=== PATIENT | male | born 2000 | race Caucasian/White ===

== ENCOUNTER 2019-10-20 20:44 | Emergency (ER) | payer OTHER ==
[~2019-10-20] VITALS: Ht 172.7 cm; Wt 56.7 kg
--- NOTE | 2019-10-20 21:18 | NUR ---
PT BIBSELF STATING "I'M SCARED I HAVE JACK VIRUS" PT ASYMPTOMATIC. MEDICAL SCREENING EXAM BY DR. RUELAS AND MEDICALLY CLEARED FOR DISCHARGE. UPON DISCHARGE, WAS INFORMED PT NEEDS MEDICAL CLEARANCE. PT NOW C/O SI WITH PLAN TO RUN INTO TRAFFIC. PT AAOX4. RESPIRATIONS EVEN AND UNLABORED. SKIN INTACT. VITAL SIGNS STABLE. AMBULATORY WITH STEADY GAIT. PT PLACED IN GOWN, BELONGINGS COLLECTED AND PLACED IN PT LOCKER. SITTER AT BEDSIDE
--- NOTE | 2019-10-20 21:20 | NUR ---
URINE SPECIMEN COLLECTED AND SENT TO LAB.
--- NOTE | 2019-10-20 21:30 | NUR ---
SECURITY AT BEDSIDE FOR WANDING
[2019-10-20 21:35] LABS: BASOPHILS # (AUTO) 0.1 /CMM (0.0-0.2); BASOPHILS % (AUTO) 1.1 % (0.0-2.0); EOSINOPHILS % (AUTO) 1.1 % (0.0-6.0); HEMATOCRIT 45 % (39-51); HEMOGLOBIN 15.1 g/dL (13.5-17.5); LYMPHOCYTES % (AUTO) 21.9 % (20.0-44.0); MEAN CORPUSCULAR HGB CONC 33 g/dl (31.0-36.0); MEAN CORPUSCULAR VOLUME 93 fL (80-96); MONOCYTES # (AUTO) 0.8 /CMM (0.1-1.30); MONOCYTES % (AUTO) 9.2 % (2.0-12.0); NEUTROPHILS % (AUTO) 66.7 % (43.0-81.0); PLATELET COUNT (AUTO) 266 /CMM (150-450); RED BLOOD CELL COUNT(AUTO) 4.87 MIL/uL (4.5-6.0)
[2019-10-20 21:51] LABS: APPEARANCE,URINE Clear (CLEAR); BILIRUBIN,URINE Negative (NEGATIVE); BLOOD, URINE Negative Ery/uL (NEGATIVE); COLOR,URINE Yellow (YELLOW); KETONES,URINE Negative (NEGATIVE); LEUKOCYTE ESTERASE ,URINE Negative (NEGATIVE); NITRITE, URINE Negative (NEGATIVE); PH,URINE 8.5 (5.0-8.0); PROTEIN,URINE Negative (NEGATIVE); UGLUCOSE Negative (NEGATIVE)
[2019-10-20 21:57] LABS: ALANINE AMINOTRANSFERASE 36 U/L (12-78); ALBUMIN 4.3 g/dL (3.4-5.0); ALCOHOL, BLOOD < 3 mg/dL (0-0); ALKALINE PHOSPHATASE 62 U/L (46-116); ASPARTATE AMINOTRANSFERASE 30 U/L (15-37); BILIRUBIN,DIRECT 0.1 mg/dL (0.0-0.2); BILIRUBIN,TOTAL 0.5 mg/dL (0.2-1.0); CALCIUM, SERUM 8.8 mg/dL (8.5-10.1); CARBON DIOXIDE 31 mmol/L (21-32); CHLORIDE 105 mmol/L (98-107); CREATININE 0.9 mg/dL (0.6-1.3); GLUCOSE 83 mg/dL (74-106); POTASSIUM 3.9 mmol/L (3.5-5.1); SODIUM SERUM 143 mmol/L (136-145); TOTAL PROTEIN, SERUM 7.4 g/dL (6.4-8.2); UREA NITROGEN, BLOOD 19 mg/dL (7-18)
[2019-10-20 22:01] LABS: ACETAMINOPHEN 0 ug/ml (10-30); SALICYLATE 0.4 mg/dL (2.8-20.0)
--- NOTE | 2019-10-20 22:34 | NUR ---
ALLEGRA CORTEZ (ROOMMATE/COWORKER) CONTACT INFORMATION: [phone]
[2019-10-20 22:46] LABS: BACTERIA,URINE Few /HPF (None Seen); RBC,URINE 0-2 /HPF (0-2); SQUAMOUS EPITHELIAL CELL,UR Rare /HPF (None Seen); URINE AMORPHOUS PHOSPHATES Moderate /HPF (None Seen); WBC,URINE 0-2 /HPF (0-3)
--- NOTE | 2019-10-20 22:46 | NUR ---
CLINICAL INFORMATION FAXED TO [facility]
--- NOTE | 2019-10-20 23:09 | NUR ---
SPOKE WITH RAVEN FROM [facility], UNABLE TO ACCEPT PT DUE TO INSURANCE
--- NOTE | 2019-10-21 03:58 | NUR ---
PT RESTING COMFORTABLY IN BED. VITAL SIGNS STABLE. SITTER STILL AT BEDSIDE, WILL CONTINUE TO MONITOR
--- NOTE | 2019-10-21 06:29 | NUR ---
PT RESTING COMFORTABLY IN BED. VITAL SIGNS STABLE. SITTER AT BEDSIDE. WILL CONTINUE TO MONITOR
--- NOTE | 2019-10-21 08:15 | NUR ---
GRINDER NEEDLE TIP was informed by FRANCO Davis that pt. is seeking voluntary psychiatric admission. Pt was referred to [facility] but was declined [place].
--- NOTE | 2019-10-21 08:24 | NUR ---
WINDOW SHADE RING SEWER was informed by ED CRN Gener that pt. is not accepted to [facility] due to having [facility] Insurance. WINDOW SHADE RING SEWER gave clinical packet to discharge coordinator Yash to refer pt to [facility] for voluntary psychiatric admission.
--- NOTE | 2019-10-21 10:00 | NUR ---
PATIENT AWAKE AND ALERT, ORIENTED X4, NO DISTRESS NOTED.
--- NOTE | 2019-10-21 10:49 | NUR ---
COOKER SULFATE contacted Ad at [facility] as well if he can assist. Ad to f/u and callback regarding making an exception and accepting pt at [facility].
--- NOTE | 2019-10-21 11:51 | NUR ---
HOME FIRE ALARM INSTALLER followed up with marketing traffic coordinator Yash in regards to acceptance of pt. Per Yash, she spoke to [facility] and they are still pending acceptance.
--- NOTE | 2019-10-21 13:30 | NUR ---
motion picture cameraman met with the pt bedside. Pt is alert and oriented x 3. Pt reports he lives with his friend/coworker Will in [place]. Pt states, he has a psychiatric diagnosis of Schizophrenia. Pt reports he is suicidal with a plan to run into traffic. Pt is also having auditory hallucination and experiencing internal stimuli but is not able to express it. Pt states, he is willing to go voluntary to a psychiatric hospital. Pt currently takes Abilify.
--- NOTE | 2019-10-21 13:30 | NUR ---
EVALUATED BY CAGE LOADER. PATIENT CLAIMS HE'S HEARING VOICES.
--- NOTE | 2019-10-21 14:26 | NUR ---
ALLEGRA CORTEZ [phone] (FRIEND)
--- NOTE | 2019-10-21 20:59 | NUR ---
RECEIVED CALL FROM [facility]. STILL HAVE NO BEDS. [facility] WILL TAKE OVER THE CASE FOR THE NIGHT. WILL AWAIT FURTHER CALLS THROUGHOUT THE NIGHT.
--- NOTE | 2019-10-21 22:33 | NUR ---
PT ASLEEP, NO ACUTE DISTRESS NOTED, RESP EVEN AND UNLABORED. VITAL SIGNS STABLE. SITTER STILL AT BEDSIDE, WILL CONTINUE TO MONITOR
--- NOTE | 2019-10-21 22:36 | NUR ---
RECEIVED CALL FROM [facility], PT SHOULD HAVE A BED AT [facility] IN THE MORNING. WILL CALL BACK WITH ROOM ASSIGNMENT. Addendum: 10/21/19 at 2251 by AMEYA [facility]
--- NOTE | 2019-10-22 00:32 | NUR ---
PT ASLEEP, NO ACUTE DISTRESS NOTED, RESP EVEN AND UNLABORED. SITTER STILL REMAINS AT BEDSIDE. WILL CONTINUE TO MONITOR PT.
--- NOTE | 2019-10-22 02:20 | NUR ---
PT ASLEEP, NO ACUTE DISTRESS NOTED, RESP EVEN AND UNLABORED. SITTER STILL REMAINS AT BEDSIDE. WILL CONTINUE TO MONITOR PT.
--- NOTE | 2019-10-22 04:10 | NUR ---
PATIENT AMBULATED TO RESTROOM WITH A STEADY GAIT.
--- NOTE | 2019-10-22 05:43 | NUR ---
PT ASLEEP, NO ACUTE DISTRESS NOTED, RESP EVEN AND UNLABORED. SITTER STILL REMAINS AT BEDSIDE. WILL CONTINUE TO MONITOR PT.
--- NOTE | 2019-10-22 07:23 | NUR ---
RECEIVED CALL FROM ASHOK AT [facility]. INFORMED THAT THEY ARE STILL LOOKING FOR PLACEMENT. WILL AWAIT FURTHER UPDATES.
[2019-10-22] MEDS ORDERED: OLANZAPINE 5 MG TABLET ONE (11:15)
[2019-10-22] MEDS ORDERED: OLANZAPINE 5 MG TABLET PO ONE (11:30)
--- NOTE | 2019-10-22 11:32 | NUR ---
PATIENT A/OX4, BREATHING EVEN AND UNLABORED, DENIES PAIN AT THIS TIME, NEEDS ATTENDED, KEPT COMFORTABLE. FOOD GIVEN, HAS ADEQUATE CLOTHING, TAP CARD PROVIDED. Patient given written and verbal discharge instructions. Patient verbalizes understanding of instructions. Patient is ambulatory with steady gait. Refuses offer of penitentiary placement. Patient given list of available shelters in surrounding area. Patient discharged to waiting room, will be picked up by friend.
[2019-10-22 11:34] VITALS: BP 129/64
--- NOTE | 2019-10-22 11:42 | NUR ---
GOT A CALL FROM ALLEGRA. HE IS NOT GOING TO BE ABLE TO PICK HIM UP. UNCLE JASON WILL BE DRIVING IN TO PICK HIM UP. JASON PHONE NUMBER, .
== END 2019-10-22 11:35 | disposition home or self-care (01) ==
LOC: ER 20:47
DX: F20.9 Schizophrenia, unspecified (principal); F31.9 Bipolar disorder, unspecified
CPT/HCPCS: 36415; 80048; 80076; 80305; 80307; 80329; 81001; 85025; 99285; G0480; 81000-TC